=== PATIENT | female | born 1980 | race African-American/Black ===

== ENCOUNTER 2017-05-23 12:39 | Emergency (ER) | payer BC ==
[~2017-05-23] VITALS: Ht 167.6 cm; Wt 75.0 kg
[2017-05-23] MEDS ORDERED: CYCLOBENZAPRINE 10MG TABLET PO ONE (14:00)
[2017-05-23] MEDS ORDERED: KETOROLAC 60MG/2ML VIAL IM ONE (14:00)
[2017-05-23 15:41] VITALS: BP 122/78
== END 2017-05-23 15:43 | disposition home or self-care (01) ==
LOC: ER 13:01
DX: M62.830 Muscle spasm of back (principal); M54.9 Dorsalgia, unspecified; Z88.6 Allergy status to analgesic agent
CPT/HCPCS: 81025; 96372; 99283; J1885